=== PATIENT | female | born 1955 | race Caucasian/White ===

== ENCOUNTER 2017-04-23 13:25 | Emergency (ER) | payer BC, OTHER ==
--- NOTE | 2017-04-23 14:08 | EDM.PDOC ---
ED HPI GENERAL MEDICAL PROBLEM - General Chief Complaint: General Stated Complaint: PT HAS TICKS Time Seen by Provider: 04/23/17 13:44 - History of Present Illness INITIAL COMMENTS - FREE TEXT/NARRATIVE: HISTORY AND PHYSICAL: History of present illness: Patient is 61-year-old female presents with concern of medical screening exam patient states she's had some generalized malaise and did notice that she had multiple ticks on her recently but no fever no chills and no other significant complaints the Review of systems: As per history of present illness and below otherwise all systems reviewed and negative. Past medical history: As per history of present illness and as reviewed below otherwise noncontributory. Surgical history: As per history of present illness and as reviewed below otherwise noncontributory. Social history: No reported history of drug or alcohol abuse. Family history: As per history of present illness and as reviewed below otherwise noncontributory. Physical exam: HEENT: Atraumatic, normocephalic, pupils reactive, negative for conjunctival pallor or scleral icterus, mucous membranes moist, throat clear, neck supple, nontender, trachea midline. Lungs: Clear to auscultation, breath sounds equal bilaterally, chest nontender. Heart: S1S2, regular, negative for clicks, rubs, or JVD. Abdomen: Soft, nondistended, nontender. Negative for masses or hepatosplenomegaly. Negative for costovertebral tenderness. Pelvis: Stable nontender. Genitourinary: Deferred. Rectal: Deferred. Extremities: Atraumatic, negative for cords or calf pain. Neurovascular unremarkable. Neuro: Awake, alert, oriented. Cranial nerves II through XII unremarkable. Cerebellum unremarkable. Motor and sensory unremarkable throughout. Exam nonfocal. Diagnostics: CBC CMP Lyme screening Therapeutics: None Impression: #1 medical screening exam Definitive disposition and diagnosis as appropriate pending reevaluation and review of above. ED ROS GENERAL - Review of Systems Review Of Systems: ROS reveals no pertinent complaints other than HPI. ED EXAM, GENERAL - Physical Exam Exam: See Below (See dictation) Course - Orders/Labs/Meds Orders: Active Orders 24 hr Category Date Time Status COMPREHENSIVE METABOLIC PN,CMP [CHEM] Stat Lab 04/23/17 14:01 Received LYME/B.BURGDORFERI IGG/IGM [REF] Stat Lab 04/23/17 14:01 Received Labs: Laboratory Tests 06/03/17 Range/Units 14:01 WBC 4.44 (4.0-11.0) K/uL RBC 4.54 (4.30-5.90) M/uL Hgb 14.8 (12.0-16.0) g/dL Hct 41.6 (36.0-46.0) % MCV 91.6 (80.0-98.0) fL MCH 32.6 H (27.0-32.0) pg MCHC 35.6 (31.0-37.0) g/dL RDW Std Deviation 42.7 (28.0-62.0) fl RDW Coeff of Ketan 13 (11.0-15.0) % Plt Count 144 L (150-400) K/uL MPV 10.40 (7.40-12.00) fL Neut % (Auto) 52.5 (48.0-80.0) % Lymph % (Auto) 35.8 (16.0-40.0) % [place] % (Auto) 9.9 (0.0-15.0) % Eos % (Auto) 0.9 (0.0-7.0) % Baso % (Auto) 0.9 (0.0-1.5) % Neut # (Auto) 2.3 (1.4-5.7) K/uL Lymph # (Auto) 1.6 (0.6-2.4) K/uL [place] # (Auto) 0.4 (0.0-0.8) K/uL Eos # (Auto) 0.0 (0.0-0.7) K/uL Baso # (Auto) 0.0 (0.0-0.1) K/uL Nucleated RBC % 0.0 /100WBC Nucleated RBCs # 0 K/uL Departure - Departure Time of Disposition: 14:07 Disposition: Home, Self-Care 01 Condition: good Clinical Impression: Encounter for medical screening examination - Discharge Information Forms: ED Department Discharge Additional Instructions: The following information is given to patients seen in the emergency department who are being discharged to home. This information is to outline your options for follow-up care. We provide all patients seen in our emergency department with a follow-up referral. The need for follow-up, as well as the timing and circumstances, are variable depending upon the specifics of your emergency department visit. If you don't have a primary care physician on staff, we will provide you with a referral. We always advise you to contact your personal physician following an emergency department visit to inform them of the circumstance of the visit and for follow-up with them and/or the need for any referrals to a consulting specialist. The emergency department will also refer you to a specialist when appropriate. This referral assures that you have the opportunity for followup care with a specialist. All of these measure are taken in an effort to provide you with optimal care, which includes your followup. Under all circumstances we always encourage you to contact your private physician who remains a resource for coordinating your care. When calling for followup care, please make the office aware that this follow-up is from your recent emergency room visit. If for any reason you are refused follow-up, please contact the [facility] emergency department at and asked to speak to the emergency department charge nurse. [facility] [address] [place] [id number] Followup clinic above is discussed with fluids Motrin/Tylenol as directed return as needed as discussed - My Orders Last 24 Hours: My Active Orders 04/23/17 14:01 COMPREHENSIVE METABOLIC PN,CMP [CHEM] Stat LYME/B.BURGDORFERI IGG/IGM [REF] Stat - Assessment/Plan Last 24 Hours: My Active Orders 04/23/17 14:01 COMPREHENSIVE METABOLIC PN,CMP [CHEM] Stat LYME/B.BURGDORFERI IGG/IGM [REF] Stat
[2017-04-23 14:30] VITALS: BP 111/60
== END 2017-04-23 14:37 | disposition home or self-care (01) ==
LOC: MW.ED 13:25
DX: Z13.89 Encounter for screening for other disorder (principal); R53.81 Other malaise
CPT/HCPCS: 36415; 80053; 85025; 86618; 99282; 99283